=== PATIENT | female | born 1970 | race Caucasian/White ===

== ENCOUNTER 2017-10-16 10:23 | Day surgery (SDC) | payer BC ==
[2017-10-15 09:18] VITALS: BMI 32.5
[~2017-10-16 10:23] MED LIST: LACTATED RINGERS 1,000 ML IV SCH; LIDOCAINE 1% 20 ML VIAL (10MG/ML) FOR IV START INTRADERMA PRN
[2017-10-16 11:48] VITALS: RESP 16; TEMP 98.5
[2017-10-16] MEDS ORDERED: PROPOFOL 10 MG/ML 20 ML VIAL IV ONE (13:25)
[2017-10-16] MEDS ORDERED: LIDOCAINE 1% INJ 10MG/ML (20 ML MDV) ONE (13:25)
--- NOTE | 2017-10-16 13:33 | P.PCN ---
Date of Procedure: 10/16/17 Procedure(s) Performed: BRIEF HISTORY: Patient is a 46-year-old, pleasant, white female, scheduled for an upper endoscopy as a part of evaluation of globus-like sensation in her throat for the last 2 months duration. She was given a trial of Zantac 150 milligrams twice daily for a month with minimal help. She denies any heartburn , no dysphagia or odynophagia. PROCEDURE PERFORMED: Esophagogastroduodenoscopy with biopsy. PREOPERATIVE DIAGNOSIS: Globus pharyngicus. IV sedation per anesthesia. PROCEDURE: After informed consent was obtained, the patient was brought into the endoscopy unit. IV sedation was administered by Anesthesia under continuous monitoring. Initially the Olympus GIF-140 video endoscope was inserted into the mouth. Esophagus intubated without any difficulty. It was gradually advanced into the stomach and duodenum and carefully examined. The bulb and the second part of the duodenum appeared normal. The scope at this time was withdrawn to the stomach, adequately insufflated with air, and upon careful examination, mucosa of the antrum, had diffuse patchy erythema and biopsies were done from this area. The body, cardia and the fundus appeared normal. The scope was then withdrawn into the esophagus. The GE junction was located at 39 cm from the incisors. The esophagus appeared normal. There were no erosions or ulcerations seen. There was no evidence of esophageal stricture. Biopsies were done from mid and distal esophagus to rule out eosinophilic esophagitis and the patient tolerated the procedure well. IMPRESSION: 1. Mild antral gastritis. 2. Normal-appearing esophagus with no evidence of esophageal stricture, esophageal Or esophagitis. RECOMMENDATIONS: The findings of this examination were discussed with the patient as well as a family. She was advised to follow with the biopsy results. She will continue to follow antireflux measures..
[2017-10-16 14:04] VITALS: BP 107/73; PULSE 71
== END 2017-10-16 14:27 | disposition home or self-care (01) ==
LOC: ORWHC2ENDO 10:23
PROVIDERS: ATTEND Internal Medicine Gastroenterology
DX: K29.50 Unspecified chronic gastritis without bleeding (principal); K21.9 Gastro-esophageal reflux disease without esophagitis; Z79.899 Other long term (current) drug therapy
CPT/HCPCS: 81025; 88305; 88342; 43239; J2001; J2704

== ENCOUNTER → 2017-10-16 | Outpatient (CLI) | payer BC ==
--- NOTE | 2017-10-16 14:54 | FL ---
EXAMINATION TYPE: FL barium swallow DATE OF EXAM: 10/16/2017 CLINICAL HISTORY: Dysphagia. Feeling something in upper throat with swallowing. TECHNIQUE: A double contrast esophagram is scheduled utilizing air and barium. A total of 0 seconds of fluoroscopic time was utilized during procedure. COMPARISON: None FINDINGS: Patient was given air contrast. Prior to giving barium patient states she has scheduled end oscopy later today. GI physician performing endoscopy made aware of upper GI study. Study is canceled as retained barium may obstruct direct visualization for scheduled endoscopy later today. IMPRESSION: As above. No imaging obtained. Patient will not be charged.
== END | disposition home or self-care (01) ==
LOC: RADFLWHC 10:47
PROVIDERS: ATTEND Otolaryngology
DX: Z53.9 Procedure and treatment not carried out, unspecified reason (principal)